=== PATIENT | female | born 1970 | race Caucasian/White ===

== ENCOUNTER 2017-10-21 16:58 | Emergency (ER) | payer BC ==
[~2017-10-21] VITALS: Ht 157.5 cm; Wt 86.2 kg
[~2017-10-21 16:58] MED LIST: ASPIRIN EC81 MG PO; ATORVASTATIN CA80 MG PO; CLOPIDOGREL75 MG PO; LANTUS100 UNITS/ SUB-Q; LISINOPRIL10 MG PO; LISINOPRIL5 MG PO; METFORMIN HCL500 MG PO; METOPROLOL TART25 MG PO; PERCOCET 5-3251 EACH PO; SIMVASTATIN10 MG PO
[2017-10-21] MEDS ORDERED: NEURONTIN300 MG PO (17:13)
[2017-10-21] MEDS ORDERED: ISOSORBIDE DINI30 MG PO (17:15)
[2017-10-21] MEDS ORDERED: PLAVIX75 MG PO (17:15)
[2017-10-21] MEDS ORDERED: METOPROLOL SUCC25 MG PO (17:15)
[2017-10-21] MEDS ORDERED: NORCO 5-325 TA1 EACH PO (18:32)
[2017-10-21] MEDS ORDERED: BACLOFEN10 MG PO (18:32)
[2017-10-21] MEDS ORDERED: KETOROLAC TROME10 MG PO (18:32)
--- NOTE | 2017-10-22 21:04 | EKG ---
[facility] [address] [facility] [place], [place] [address] Signed Normal sinus rhythm Rightward axis Borderline ECG No previous ECGs available Confirmed by JUSTIN AGUIRRE MD ([id number] on 10/22/2017 9:03:59 PM Electronically Signed By: JUSTIN AGUIRRE MD 10/22/17 2104 PATIENT NAME: GIUSEPPE YANG Electrocardiogram DATE OF : 68 PHYSICIAN: JUSTIN AGUIRRE MD REPORT #: [id number] REPORT IS CONFIDENTIAL AND NOT TO BE RELEASED WITHOUT AUTHORIZATION
== END 2017-10-21 18:41 | disposition home or self-care (01) ==
LOC: ED 16:58
DX: R07.9 Chest pain, unspecified (principal); F06.4 Anxiety disorder due to known physiological condition; M25.519 Pain in unspecified shoulder; I10 Essential (primary) hypertension; E78.5 Hyperlipidemia, unspecified; E11.9 Type 2 diabetes mellitus without complications; I25.2 Old myocardial infarction; F17.200 Nicotine dependence, unspecified, uncomplicated; Z88.0 Allergy status to penicillin; Z88.2 Allergy status to sulfonamides; Z79.84 Long term (current) use of oral hypoglycemic drugs; Z79.899 Other long term (current) drug therapy; Z79.4 Long term (current) use of insulin
CPT/HCPCS: 71045; 80053; 84484; 85025; 85610; 85730; 93005; 93010; 96374; 96375; 99283; J1885; J2060

== ENCOUNTER 2025-06-30 11:28 | Emergency (ER) | payer OTHER, BC ==
[~2025-06-30] VITALS: Ht 157.5 cm; Wt 70.7 kg
[~2025-06-30 11:28] MED LIST changes: +AMIODARONE HCL200 MG PO; +BACLOFEN10 MG PO; +GLIPIZIDE10 MG PO; +HYDROCODON-ACE1 EA10 PO; +ISOSORBIDE DINI30 MG PO; +KETOROLAC TROME10 MG PO; +METFORMIN HCL500 M1 PO; +METOPROLOL SUCC25 MG PO; +NEURONTIN300 MG PO; +NORCO 5-325 TA1 EACH PO; +PLAVIX75 MG PO; +TOUJEO SOL300 UNIT/1 SUB-Q; +TRAMADOL HCL50 MG PO; +VENTOLIN HFA18 GM INH; +WARFARIN SODIUM1 MG PO; +WARFARIN SODIUM2 MG PO
[2025-06-30] MEDS ORDERED: OXYCODONE/APAP 5/325 TAB PO ONE (12:15)
[2025-06-30] MEDS ORDERED: ONDANSETRON 4 MG TAB ODT SL ONE (12:15)
[2025-06-30 14:18] VITALS: BP 123/75
== END 2025-06-30 14:18 | disposition home or self-care (01) ==
LOC: ED 11:28
DX: M25.562 Pain in left knee (principal); I10 Essential (primary) hypertension; E78.5 Hyperlipidemia, unspecified; E11.9 Type 2 diabetes mellitus without complications; F17.200 Nicotine dependence, unspecified, uncomplicated; Z79.84 Long term (current) use of oral hypoglycemic drugs; Z79.899 Other long term (current) drug therapy; Z88.0 Allergy status to penicillin; Z88.2 Allergy status to sulfonamides
CPT/HCPCS: 73560; 73700; 99284-25; A9270